=== PATIENT | male | born 1955 | race Caucasian/White ===

== ENCOUNTER 2025-02-20 12:23 | Outpatient (CLI) | payer MEDICARE, SELFPAY ==
--- NOTE | ~2025-02-20 | PE_ITS ---
EXAMINATION: PET_PETPSMAST_PT DATE: 02/20/2025 14:53 INDICATION: Prostate cancer TECHNIQUE: 5.32 mCi of Illucix Ga-68([id number]) was administered i.v. Low dose computed tomog seferino (CT) images were acquired from the base of the brain to the base of the brain to the proximal t highs for attenuation correction and anatomic localization. Positron emission tomography (PET) images were acquired in the same distribution beginning 85 minutes after injection. Images including fused PET/CT images were reconstructed in axial, coronal, and sagittal planes. Automated exposure control t echnique was employed. The dose-length product was 661.63mGy-cm. COMPARISON: None FINDINGS: Head/neck: Typical pattern of symmetric physiologic increased activity in the lacrimal, parotid and submandibula r glands as well as along the mucosa of the nasal and oral cavities, pharynx and hypopharynx. No path ologically enlarged cervical lymphadenopathy or suspicious foci of increased uptake in the visualized head or neck. Chest: Mild biapical pleural-parenchymal scarring. No suspicious pulmonary nodules or pleural effusion. Hear t size is normal. No pericardial effusion. Thoracic aorta is normal in caliber. Calcified mediastinal and left hilar lymph nodes consistent with old granulomatous disease. No pathologically enlarged or PSMA avid thoracic lymphadenopathy. Abdomen/pelvis/proximal thighs: Physiologic renal accumulation and excretion of activity in the kidneys, bladder and along portions o f ureters. Enlarged prostate measuring 4.8 x 4.4 cm. There is a small focus of increased uptake at th e right posterior aspect of the prostate with maximal SUV of 4.1 consistent with primary prostate can cer. Normal degree and slightly heterogenous pattern of increased uptake throughout the liver and spl een without radiologic correlate or dominant PSMA avid lesion. Cholecystectomy clips in the gallbladd er fossa. The pancreas and bilateral adrenal glands are normal. Moderate uptake scattered throughout the bowels with typical duodenal and proximal jejunal predominance and without radiologic correlate, also likely physiologic. No other abnormal foci of increased uptake or pathologically enlarged lympha denopathy in the abdomen, pelvis or proximal thighs. Musculoskeletal: Mild thoracic dextrocurvature with mild to moderate spondylosis. Moderate lower cervical spondylosis. No suspicious lytic, blastic or abnormally PSMA avid bone lesions. IMPRESSION: 1. Small focus of mild increased uptake at the right posterior aspect of the enlarged prostate consis tent with primary prostate cancer. No lesion suspicious for metastatic disease. Reviewed, dictated and finalized at location A. IMPRESSION: 1. Small focus of mild increased uptake at the right posterior aspect of the en larged prostate consistent with primary prostate cancer. No lesion suspicious f or metastatic disease.
== END 2025-02-20 12:24 | disposition home or self-care (01) ==
PROVIDERS: PCP Family Medicine; Visit Provider Urology
DX: C61 Malignant neoplasm of prostate (principal)
CPT/HCPCS: 78815; A9596

== ENCOUNTER 2025-05-12 11:54 | Outpatient (CLI) | payer MEDICARE, SELFPAY ==
--- NOTE | ~2025-05-12 | PE_ITS ---
EXAMINATION: PET_PETPSMAST_PT DATE: 05/12/2025 15:06 INDICATION: Malignant neoplasm of prostate. TECHNIQUE: 5.386 mCi of Ga-68 gozetotide was administered intravenously. Low dose computed tomography (CT) images were acquired from the base of the brain to the proximal thighs for attenuation correction and anatomic localization. Automated exposure control was employed. Dose-length product (DLP) was 612 mGy- cm. Positron emission tomography (PET) images were acquired in the same distribution. COMPARISON: PET/CT 02/20/2025 FINDINGS: Head/neck: There are no pathologically enlarged lymph nodes. Chest: There is mild scarring at the lung apices. A calcified left lung nodule and calcified left hilar mediastinal lymph nodes are consistent with old granulomatous disease. No pleural effusion. The heart size is normal. No pericardial effusion. There is bilateral gynecomastia. Abdomen/pelvis/proximal thighs: The liver is normal. There are changes of cholecystectomy. Calcifications in the spleen are consistent with old granulomatous disease. The pancreas, adrenal glands, and kidneys are normal. The prostate is moderately enlarged. There is activity in the prostate bilaterally with maximum SUV of 3.6. There is diffuse bladder wall thickening, likely secondary to chronic outlet obstruction. There are no dilated loops of bowel. There are no pathologically enlarged lymph nodes. There is no free intraperitoneal fluid. There is no osseous metastatic disease. IMPRESSION: 1. Moderately enlarged prostate with maximum SUV of 3.6. No evidence of metastatic disease. Reviewed, dictated and finalized at location E. IMPRESSION: 1. Moderately enlarged prostate with maximum SUV of 3.6. No evidence of metasta tic disease.
== END 2025-05-12 11:55 | disposition home or self-care (01) ==
PROVIDERS: PCP Family Medicine; Visit Provider Urology
DX: C61 Malignant neoplasm of prostate (principal); N40.0 Benign prostatic hyperplasia without lower urinary tract symptoms
CPT/HCPCS: 78815; A9596